=== PATIENT | female | born 1965 | race Caucasian/White ===

== ENCOUNTER → 2017-07-05 | Outpatient (CLI) | payer BC ==
[~2017-07-05] MED LIST: ALLEGRA-D 12 HR1 TAB PO; ASPIRIN325 MG PO; AVAPRO300 MG PO; BIOTIN1 MG PO; CIPRO500 MG PO; KEFLEX500 MG PO; LACTINEX (FLORA1 TAB PO; LEVAQUIN 750 M750 MG PO; MELOXICAM7.5 MG PO; MUPIROCIN30 GM TOP; NASONEX17 GM NOSE; PROAIR HFA8.5 GM INH; ULTRAM50 MG PO; VESTURA 3 MG-01 EACH PO; VITAMIN D31000 UNI1 PO
== END | disposition disaster alternative care site (69) ==
LOC: GRAD 05-18 09:00
DX: K76.0 Fatty (change of) liver, not elsewhere classified (principal); K76.9 Liver disease, unspecified
CPT/HCPCS: A9577